=== PATIENT | female | born 2000 | race Caucasian/White ===

== ENCOUNTER 2020-05-24 20:31 | Emergency (ER) | payer OTHER ==
[~2020-05-24] VITALS: Ht 162.6 cm; Wt 56.7 kg
[~2020-05-24 20:31] MED LIST: BACTRIM DS TAB1 EACH PO; CEPHALEXIN 500500 M3 PO; IBUPROFEN 200200 M1 PO; IBUPROFEN 600600 M1 PO; NORCO 5-325 TA1 EACH PO; TRAMADOL 50 MG50 MG PO; TYLENOL325 MG PO
[2020-05-24 21:01] VITALS: BP 127/72
== END 2020-05-24 21:42 | disposition left against medical advice (07) ==
LOC: M.ERS 20:31
DX: R19.7 Diarrhea, unspecified (principal); Z53.21 Procedure and treatment not carried out due to patient leaving prior to being seen by health care provider